=== PATIENT | female | born 1970 | race Caucasian/White ===

== ENCOUNTER 2019-11-06 20:00 | Outpatient (CLI) | payer MEDICARE, MEDICAID, SELFPAY | END 2019-11-06 20:01 | disposition home or self-care (01) | LOC: SLEEP 11-07 09:44 | PROVIDERS: Visit Provider Anesthesiology Pain Medicine | DX: G47.33 Obstructive sleep apnea (adult) (pediatric) (principal) | CPT/HCPCS: 95810; 95811 ==